=== PATIENT | male | born 1960 | race Caucasian/White ===

== ENCOUNTER 2019-07-09 10:38 | Inpatient (IN) | payer SELFPAY ==
[2019-07-09] VITALS (9 sets, daily range): BP systolic 123–146; BP diastolic 73–88; PULSE 82–90; TEMP 97–98.8
[~2019-07-09] VITALS: Ht 185.4 cm; Wt 128.0 kg
[~2019-07-09 10:38] MED LIST: ANTIBIOTIC
[2019-07-09 12:05] LABS: HEMATOCRIT 43.2 % (42.0-52.0); HEMOGLOBIN 14.4 g/dl (13.5-18.0); MEAN CELL VOLUME 86 fl (80.0-100.0); MEAN CORPUSCULAR HEMOGLOBIN 29 pg (27.0-31.0); MEAN CORPUSCULAR HGB CONC 33 g/dl (33.0-37.0); MEAN PLATELET VOLUME 8.9 fl (7.4-10.4); PLATELET COUNT 424 K/mm3 (130-400); RED BLOOD COUNT 5.01 M/mm3 (4.20-5.60); REDCELL DISTRIBUTION WIDTH-CV 13.7 % (11.5-14.5)
[2019-07-09 12:26] LABS: ALBUMIN 3.9 gm/dL (3.5-5.0); CALCIUM 9.2 mg/dL (8.4-10.2); CREATININE, serum 1.13 (0.66-1.25); POTASSIUM 4.7 mmol/L (3.4-5.0); TOTAL PROTEIN 7.8 gm/dL (6.4-8.2)
[2019-07-09 12:38] LABS: BAND 3 % (0-10); EOSINOPHIL 1 % (0-4); LYMPHOCYTE 8 % (20.0-51.0); NEUTROPHILS 82 % (42.0-75.2); PLATELET ESTIMATE INCREASED (NORMAL)
[2019-07-09 14:32] LABS: COLLECTION METHOD CLEAN CATCH
[2019-07-09 14:46] LABS: MUCOUS Present /lpf; PH 6 (5-8); SQUAMOUS EPITHELIAL 0-2 /hpf; URINE APPEARANCE Hazy; URINE BACTERIA Rare /hpf; URINE BILIRUBIN Negative (NEGATIVE); URINE BLOOD Negative (NEGATIVE); URINE COLOR Amber; URINE GLUCOSE Negative (NEGATIVE); URINE KETONE Negative (NEGATIVE); URINE LEUKOCYTE ESTERASE Negative (NEGATIVE); URINE NITRATE Negative (NEGATIVE); URINE PROTEIN(semi-quant) 1+ (NEGATIVE); URINE RBC 0-2 /hpf; URINE UROBILINOGEN >=4.0 mg/dL (NEGATIVE)
[2019-07-09 14:54] LABS: SYNOVIAL FL. MONONUCLEAR 8.1 % (0-75); SYNOVIAL FLUID RBC 17000 /mm3 (0-0); SYNOVIAL FLUID WBC 110720 /mm3 (200-600)
[2019-07-09 15:03] LABS: SYNOVIAL FLUID APPEARANCE CLOUDY; SYNOVIAL FLUID COLOR YELLOW
--- NOTE | 2019-07-09 17:23 | NUR ---
Vancomycin Initial Dosing Pharmacy Note Ordering provider: Don Luong MD Indication/duration: septic knee/cellulitis, 7 days Relevant comorbidities: h/o gout LABS: SCr 1.13, CrCl~89, GFR 66 Recommendation: Will continue Vancomycin 1.5 gm IV q12h. Pharmacy will check a Vancomycin trough on 07/11/19 and continue to closely monitor. Loading dose: 2 grams Maintenance dose: 1.5 grams every 12 hours Trough goal: 15-20 ug/mL
--- NOTE | 2019-07-09 17:30 | NUR ---
Patient down to OR by bed. Alert and oriented x 3. Family at bedside. Patient and family oriented to room. Assessment complete. LLE appears reddend, tender to touch throughout LLE. Pain medication given prior to patient leaving for OR due to pain 8/10 to left knee.
--- NOTE | 2019-07-09 18:16 | NUR ---
Contacted anesthesia, notified of elevated CRP.
--- NOTE | 2019-07-09 21:13 | NUR ---
Pt arrived to unit from PACU. Alert and oriented. Mild HTN, but other VSS. Came up on O2 at 2L. Denies pain at this time. Denies other needs. CAll light within reach, will continue to monitor
--- NOTE | 2019-07-09 23:01 | NUR ---
Patient doing well post I&D. Denies pain or needs at this time. VSS. Call light within reach, will continue to monitor
[2019-07-10] VITALS (7 sets, daily range): BP systolic 126–147; BP diastolic 70–89; PULSE 73–84; TEMP 97–98.3
--- NOTE | 2019-07-10 00:20 | NUR ---
Does not want to wear marco a hose or SCDs, stated they will make him "too hot"
--- NOTE | 2019-07-10 01:20 | NUR ---
Pt titrated off of 02. 95 on room air.
--- NOTE | 2019-07-10 06:30 | NUR ---
Reported on to Vicky OCHOA
[2019-07-10 07:26] LABS: CALCIUM 8.5 mg/dL (8.4-10.2); CREATININE, serum 0.93 (0.66-1.25); POTASSIUM 4.8 mmol/L (3.4-5.0)
[2019-07-10 07:37] LABS: BASO % 0.1 % (0.0-2.0); GRAN # 11.4 (1.4-6.5); GRAN % 85.7 % (42.2-75.2); HEMATOCRIT 38.6 % (42.0-52.0); HEMOGLOBIN 12.5 g/dl (13.5-18.0); LYMPH # 0.8 (1.2-3.4); LYMPH % 5.9 % (20.0-51.0); MEAN CELL VOLUME 87 fl (80.0-100.0); MEAN CORPUSCULAR HEMOGLOBIN 28 pg (27.0-31.0); MEAN CORPUSCULAR HGB CONC 32 g/dl (33.0-37.0); MONO % 7.4 % (1.7-9.3); PLATELET COUNT 428 K/mm3 (130-400); RED BLOOD COUNT 4.42 M/mm3 (4.20-5.60); REDCELL DISTRIBUTION WIDTH-CV 13.5 % (11.5-14.5)
[2019-07-10 07:41] LABS: C-REACTIVE PROTEIN 21.2 mg/dL (0.0-0.9)
[2019-07-10 08:01] LABS: ERYTHROCYTE SEDIMENTATION RATE 80 mm/hr (0-30)
--- NOTE | 2019-07-10 10:30 | NUR ---
Patient resting in bed, just got done working with therapy. He tolerated well, but did increase pain after, denies needing pain medication. tele dc. Lle dressing cdi. hemovac to compression. Kris to Rle. Scds ble.
--- NOTE | 2019-07-10 10:45 | NUR ---
Initial visit; Patient thanked Hemotherapist for looking in on him, visiting and offering spiritual care.
--- NOTE | 2019-07-10 11:16 | NUR ---
Optical Systems Engineer met with patient to discuss discharge planning. Patient lives in [place] with his Huy (ph#[phone]). Patient had been seeing Dr. Alex Reed in [place] for primary care but wants to switch providers. Patient reports he used to see Dr. Jose Blunt in [place] and would like to switch back to him. Patient obtains medications from [facility] on [address] [facility] in [place]. 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 Kush, Financial Counselor to consult. Patient interested in setting up Advance Directives. DOMENIC assisted patient in completing DPOA-HC form and provided witness signature along with NATI Stevens. DOMENIC provided original and copies to patient and placed additional copy in chart. Patient plans to return home upon discharge.
--- NOTE | 2019-07-10 11:22 | NUR ---
LLE edema, tender to touch. Pain at a 2, dull and achy posterior of L knee. Increased since this morning due to ambulation. Hemovac insertered posterior of L knee with serosangineous drainage. Cryocuff to L knee. SCDs to BLE. Kirs hose to RLE. Telemetry discontinued at 1000.
--- NOTE | 2019-07-10 17:28 | NUR ---
Patient resting in bed. Pain increased this afternoon. One tab norco per request. Cyrocuff on. Ready for dinner.
--- NOTE | 2019-07-10 19:25 | NUR ---
Report to night nurse
[2019-07-11 04:00] VITALS: BP 132/75; PULSE 74; TEMP 98.3
[2019-07-11 07:50] VITALS: BP 132/80; PULSE 77; TEMP 98.8
--- NOTE | 2019-07-11 08:00 | NUR ---
UPON ENTRY TO THE ROOM THIS MORNING THE PATIENT IS RESTING IN BED WITH HIS LEFT LEG ELEVATED ON TWO PILLOWS. PATIENT IS A&OX4. VSS. BOWEL SOUNDS ACTIVE ALL FOUR QUADRANTS. PATIENT TOLERATING DIET WITHOUT ANY COMPLAINTS OF N/V. LEFT KNEE DRESSED WITH A GAUZE AND NANCI WRAP DRESSING AND IS CD&I. NON-PITTING EDEMA TO LLE. ARI HOSE TO RLE. SCD'S TO BLE. CRYOCUFF IN PLACE TO LEFT KNEE. POSITIVE PEDAL PULSES EQUAL BILATERALLY. CAP REFILL <3 SECONDS. CMS INTACT. RIGHT AC TO INT. PATIENT RATING HIS PAIN A 2/10 ON A 0-10 SCALE AT REST. PATIENT STATES THAT THE PAIN IN HIS LEFT KNEE IS THROBBING IN NATURE AND DENIES THE NEED FOR PAIN MEDICATION AT THIS TIME. CALL LIGHT WITHIN REACH. PATIENT DENIES ANY NEEDS AT THIS TIME.
[2019-07-11 08:29] LABS: HEMOGLOBIN 12.4 g/dl (13.5-18.0); MEAN CELL VOLUME 87 fl (80.0-100.0); MEAN CORPUSCULAR HEMOGLOBIN 28 pg (27.0-31.0); MEAN CORPUSCULAR HGB CONC 33 g/dl (33.0-37.0); MEAN PLATELET VOLUME 8.7 fl (7.4-10.4); PLATELET COUNT 371 K/mm3 (130-400); RED BLOOD COUNT 4.36 M/mm3 (4.20-5.60); REDCELL DISTRIBUTION WIDTH-CV 13.6 % (11.5-14.5)
[2019-07-11 08:40] LABS: CALCIUM 8.6 mg/dL (8.4-10.2); CREATININE, serum 0.96 (0.66-1.25); POTASSIUM 4.5 mmol/L (3.4-5.0)
--- NOTE | 2019-07-11 10:41 | NUR ---
Loan Coordinator attended rounds with the team and will continue to follow.
--- NOTE | 2019-07-11 10:50 | NUR ---
PATIENT CALLED OUT REQUESTING PAIN MEDICATION. PATIENT RATING HIS LEFT KNEE PAIN AN 8/10 ON A O-10 SCALE AND IS THROBBING, POUNDING IN NATURE. PATIENT GIVEN PRN PO PAIN MEDICATION. CRYOCUFF IN PLACE TO LEFT KNEE. SCD'S TO BLE. CALL LIGHT WITHIN REACH. WILL CONTINUE TO MONITOR.
[2019-07-11 10:59] VITALS: BP 144/77; PULSE 79; TEMP 98.6
[2019-07-11 11:13] LABS: BAND 3 % (0-10); LYMPHOCYTE 15 % (20.0-51.0); NEUTROPHILS 71 % (42.0-75.2); PLATELET ESTIMATE NORMAL (NORMAL)
[2019-07-11 16:51] VITALS: BP 128/82; PULSE 94; TEMP 98.8
--- NOTE | 2019-07-11 19:06 | NUR ---
BEDSIDE SHIFT REPORT GIVEN TO DON KIM.
--- NOTE | 2019-07-11 19:53 | NUR ---
Vancomycin Follow-up Pharmacy Note Current regimen: 1.5 g IV q12h Vancomycin trough: 8.21 Adjustments: Increase dosage to 1.5 g IV q8h, with trough on 07/13 @ 0730
[2019-07-11 20:00] VITALS: BP 138/77; PULSE 82; TEMP 98.6
--- NOTE | 2019-07-11 21:26 | NUR ---
PATIENT IN BED. REPORTS PAIN TO LEFT KNEE 2/10. MEDICATED WITH NORCO AT THIS TIME. HAS BULKY DRSG ON KNEE, WITH CRYOCUFF ON. SL TO LEFT AC WITHOUT REDNESS OR SWELLING. TAKES HS MEDS AT THIS TIME.
[2019-07-12] VITALS (8 sets, daily range): BP systolic 126–158; BP diastolic 65–81; PULSE 58–92; TEMP 98–98.7
--- NOTE | 2019-07-12 | NUR ---
PATIENT REQUESTING SANDWICH, REPORTS DINNER WAS UNAPPETIZING. PROVIDED SNACK.
--- NOTE | 2019-07-12 06:00 | NUR ---
Medicated with [place] 2 tabs at this time for pain 4/10 to left knee.
[2019-07-12 07:17] LABS: HEMATOCRIT 38.7 % (42.0-52.0); HEMOGLOBIN 12.8 g/dl (13.5-18.0); MEAN CELL VOLUME 87 fl (80.0-100.0); MEAN CORPUSCULAR HEMOGLOBIN 29 pg (27.0-31.0); MEAN CORPUSCULAR HGB CONC 33 g/dl (33.0-37.0); MEAN PLATELET VOLUME 8.9 fl (7.4-10.4); PLATELET COUNT 406 K/mm3 (130-400); RED BLOOD COUNT 4.45 M/mm3 (4.20-5.60); REDCELL DISTRIBUTION WIDTH-CV 13.6 % (11.5-14.5)
[2019-07-12 07:24] LABS: CALCIUM 8.6 mg/dL (8.4-10.2); CREATININE, serum 1.03 (0.66-1.25); POTASSIUM 3.9 mmol/L (3.4-5.0)
[2019-07-12 07:40] LABS: C-REACTIVE PROTEIN 13.1 mg/dL (0.0-0.9)
[2019-07-12 07:46] LABS: BAND 4 % (0-10); LYMPHOCYTE 25 % (20.0-51.0); NEUTROPHILS 56 % (42.0-75.2); PLATELET ESTIMATE INCREASED (NORMAL)
[2019-07-12 07:56] LABS: ERYTHROCYTE SEDIMENTATION RATE 87 mm/hr (0-30)
--- NOTE | 2019-07-12 08:00 | NUR ---
SEE MORNING SHIFT ASSESSMENT.
--- NOTE | 2019-07-12 12:41 | NUR ---
DR. RAO CALLED AND MESSAGE LEFT FOR ID CONSULT.
--- NOTE | 2019-07-12 13:05 | NUR ---
PATIENTS LEFT LEG DRESSED WITH 4X4 GAUZE, ABD PAD, KERLIX AND NANCI WRAP. PATIENT TOLERATED WELL. PATIENT AND EXPRESSED CONCERNS IN REGARDS TO AFFORDING THE ANTIBIOTICS ONCE THE PATIENT IS DISCHARGED FROM THE HOSPITAL. MEDICAID BUSINESS ANALYST FILI CALLED AND NOTIFIED TO COME AND SPEAK WITH THE PATIENT. PATIENT DENIES PAIN AT THIS TIME. CALL LIGHT WITHIN REACH. NO OTHER NEEDS AT THIS TIME.
--- NOTE | 2019-07-12 16:17 | NUR ---
Vendor Management Associate spoke with SALBADOR Lovett who advised patient will require outpatient IV antibiotics. SW met with patient and patient's , Huy who report their preference would be to receive the IV antibiotics at home as their daughter in law, Ashley is an RN. SW explained to patient that with his lack of insurance coverage, the needed drugs would be very expensive. SW reviewed the option of patient receiving IV antibiotics at the outpatient [facility] as he has already filled out a financial assistance application. Patient will consider this option. DOMENIC will continue to follow and wait for recommendations from Infectious Disease Dr to determine what antibiotic will be administered and how often.
--- NOTE | 2019-07-12 19:34 | NUR ---
Lying in bed moaning in pain. Explains that the pain pulses, rates pain at about a 1/10 at this time. Requests pain medication. Adminsitered as prescribed. Dressing to left knee with judy wrap CDI. Patient took a shower this evening and the dressing to PICC line in right upper arm is wet. Will perform sterile dressing change at this time. Patient denies further needs.
--- NOTE | 2019-07-12 20:00 | NUR ---
REPORT GIVEN TO DON FARRELL.
--- NOTE | 2019-07-12 22:00 | NUR ---
Patient requests pain medication for shooting sharp pain in left leg. Administered pain medication as prescribed. Patient denies any further needs at this time.
[2019-07-13 03:08] VITALS: BP 137/80; PULSE 90; TEMP 98.6
--- NOTE | 2019-07-13 03:12 | NUR ---
Complains of pain 6/10 in left knee, describes as shooting pains. Administered prescribed medication. Assisted repositioning patient in bed. Patient denies further needs at this time.
--- NOTE | 2019-07-13 04:41 | NUR ---
Lying in bed on left side with eyes closed. Respirations even and unlabored. No signs or symptoms of discomfort noted at this time.
[2019-07-13 06:23] LABS: MEAN CELL VOLUME 87 fl (80.0-100.0); MEAN CORPUSCULAR HEMOGLOBIN 29 pg (27.0-31.0); MEAN CORPUSCULAR HGB CONC 33 g/dl (33.0-37.0); PLATELET COUNT 351 K/mm3 (130-400); RED BLOOD COUNT 4.21 M/mm3 (4.20-5.60); REDCELL DISTRIBUTION WIDTH-CV 13.3 % (11.5-14.5)
[2019-07-13 06:33] LABS: HEMATOCRIT 36.4 % (42.0-52.0)
[2019-07-13 06:39] LABS: CALCIUM 8.6 mg/dL (8.4-10.2); CREATININE, serum 0.92 (0.66-1.25); POTASSIUM 4.5 mmol/L (3.4-5.0)
[2019-07-13 08:06] VITALS: BP 147/89; PULSE 89; TEMP 98.5
[2019-07-13 09:44] LABS: BAND 5 % (0-10); LYMPHOCYTE 7 % (20.0-51.0); NEUTROPHILS 74 % (42.0-75.2); PLATELET ESTIMATE NORMAL (NORMAL)
--- NOTE | 2019-07-13 10:23 | NUR ---
Vancomycin Follow-up Pharmacy Note Current regimen: Vancomcyin 1.5 gm IV q8h Vancomycin trough: 14.43 Adjustments: Will increase Vancomcyin to 1.75 gm IV q8h as trough slightly subtherapeutic for goal ~15-20. Pharmacy will continue to monitor and check a Vancomycin trough on 07/15/19.
[2019-07-13 11:23] VITALS: BP 142/71; PULSE 84; TEMP 98
[2019-07-13 14:40] LABS: MEAN CELL VOLUME 85 fl (80.0-100.0); MEAN CORPUSCULAR HEMOGLOBIN 28 pg (27.0-31.0); MEAN CORPUSCULAR HGB CONC 33 g/dl (33.0-37.0); MEAN PLATELET VOLUME 8.7 fl (7.4-10.4); PLATELET COUNT 377 K/mm3 (130-400); RED BLOOD COUNT 4.27 M/mm3 (4.20-5.60); REDCELL DISTRIBUTION WIDTH-CV 13.2 % (11.5-14.5)
[2019-07-13 15:07] LABS: HEMATOCRIT 36.3 % (42.0-52.0)
[2019-07-13 15:43] VITALS: BP 145/75; PULSE 90; TEMP 98.9
[2019-07-13 15:59] LABS: BAND 2 % (0-10); EOSINOPHIL 1 % (0-4); LYMPHOCYTE 12 % (20.0-51.0); MICROCYTOSIS 1+; NEUTROPHILS 77 % (42.0-75.2)
[2019-07-13 16:02] LABS: PLATELET ESTIMATE NORMAL (NORMAL)
--- NOTE | 2019-07-13 17:30 | NUR ---
Patient has been doing well today. He is having some increased pain after his shower this afternoon. He has had ultram and norco and stated it is helping. Denies nausea. His was here this afternoon. Patient will be here again tonight. Might get discharged tomorrow if WBC is better. Vanc is infusing at this time. Patient stated he is not hungry but is thirsty. Ordered him some gatorade from the kitchen. His ice has been replaced in his cyro-cuff this afternoon. No other changes at this time. Call light within reach.
[2019-07-13 19:30] VITALS: BP 133/70; PULSE 85; TEMP 98.6
--- NOTE | 2019-07-13 20:06 | NUR ---
Lying in bed in supine position. Patient says that today he was walking in halls and that took a lot out of him. Denies any pain at this time. Dressing to left knee CDI. Patient denies further needs at this time.
[2019-07-13 23:45] VITALS: BP 132/79; PULSE 93; TEMP 98.6
--- NOTE | 2019-07-13 23:58 | NUR ---
Rating pain in left knee 8/10, describes as sharp. Administered pain medication as prescribed at this time. Patient denies further needs currently.
[2019-07-14] VITALS (12 sets, daily range): BP systolic 126–147; BP diastolic 71–93; PULSE 78–102; TEMP 98.6–99.2
--- NOTE | 2019-07-14 01:28 | NUR ---
Continues to rate pain 8/10 in left knee. Pain medication administered as prescribed. Cryocuff applied. Patient denies further needs at this time.
[2019-07-14 06:51] LABS: HEMOGLOBIN 10.9 g/dl (13.5-18.0); MEAN CELL VOLUME 86 fl (80.0-100.0); MEAN CORPUSCULAR HEMOGLOBIN 28 pg (27.0-31.0); MEAN CORPUSCULAR HGB CONC 33 g/dl (33.0-37.0); MEAN PLATELET VOLUME 8.8 fl (7.4-10.4); PLATELET COUNT 380 K/mm3 (130-400); RED BLOOD COUNT 3.85 M/mm3 (4.20-5.60); REDCELL DISTRIBUTION WIDTH-CV 13.2 % (11.5-14.5)
[2019-07-14 07:04] LABS: CALCIUM 8.8 mg/dL (8.4-10.2); CREATININE, serum 0.88 (0.66-1.25); POTASSIUM 4.5 mmol/L (3.4-5.0)
[2019-07-14 07:07] LABS: HEMATOCRIT 33.2 % (42.0-52.0)
[2019-07-14 07:28] LABS: C-REACTIVE PROTEIN 24.5 mg/dL (0.0-0.9)
[2019-07-14 07:37] LABS: BAND 3 % (0-10); EOSINOPHIL 1 % (0-4); LYMPHOCYTE 13 % (20.0-51.0); METAMYELOCYTE 1 % (0-0); NEUTROPHILS 73 % (42.0-75.2)
[2019-07-14 07:38] LABS: ERYTHROCYTE SEDIMENTATION RATE > 140 mm/hr (0-30); PLATELET ESTIMATE NORMAL (NORMAL)
--- NOTE | 2019-07-14 12:30 | NUR ---
Patient has been having a hard time getting comfortable this morning. His pain is not being contorlled well. He did not want an order for additional pain medications. He is having another surgery today to the same area. Patient and family aware. No other changes at this time. Call light within reach.
--- NOTE | 2019-07-14 17:30 | NUR ---
Patient going down for surgery. Vanc is going with patient. Consent signed and on the chart. No other changes a this time. Family at bedside. Patient showered today with the surgical scrub. No other changes at this time. Call light within reach.
--- NOTE | 2019-07-14 21:09 | NUR ---
Patient brought to floor by PACU staff via bed. Patient moaning in pain. Having pain in buttocks at this time. Dressing to left knee with NANCI bandage CDI. Swelling of knee noted. Hemovac drain compressed with small amount of bloody drainage in tubing. Patient denies needs at this time.
--- NOTE | 2019-07-14 21:32 | NUR ---
Patient moaning from pain in buttocks. Administered Morphine as prescribed at this time.
[2019-07-15] VITALS (8 sets, daily range): BP systolic 118–146; BP diastolic 63–82; PULSE 78–96; TEMP 98.4–99.9
--- NOTE | 2019-07-15 00:35 | NUR ---
Lying in bed. Rates pain 3-4/10 in left knee. Administered pain medication at this time as prescribed. Patient denies further needs.
--- NOTE | 2019-07-15 02:39 | NUR ---
Rating pain in buttocks and knee /10. Administered Morphine as prescribed. Patient denies further needs at this time.
--- NOTE | 2019-07-15 06:18 | NUR ---
Lying in bed with eyes closed. Eyes open when enter room. Patient says that he has pain but tolerable at this time. Denies any further needs at this time.
[2019-07-15 08:48] LABS: MEAN CELL VOLUME 88 fl (80.0-100.0); MEAN CORPUSCULAR HGB CONC 33 g/dl (33.0-37.0); MEAN PLATELET VOLUME 8.8 fl (7.4-10.4); RED BLOOD COUNT 3.35 M/mm3 (4.20-5.60); REDCELL DISTRIBUTION WIDTH-CV 13.5 % (11.5-14.5)
[2019-07-15 08:49] LABS: HEMATOCRIT 29.4 % (42.0-52.0); HEMOGLOBIN 9.6 g/dl (13.5-18.0); MEAN CORPUSCULAR HEMOGLOBIN 29 pg (27.0-31.0); PLATELET COUNT 492 K/mm3 (130-400)
[2019-07-15 09:14] LABS: CALCIUM 8.2 mg/dL (8.4-10.2); CREATININE, serum 0.93 (0.66-1.25); POTASSIUM 4.3 mmol/L (3.4-5.0)
[2019-07-15 09:32] LABS: C-REACTIVE PROTEIN 24.6 mg/dL (0.0-0.9)
[2019-07-15 09:35] LABS: BAND 1 % (0-10); BASOPHIL 1 % (0-2); METAMYELOCYTE 1 % (0-0); NEUTROPHILS 85 % (42.0-75.2)
[2019-07-15 09:36] LABS: HYPOCHROMIA 1+; LYMPHOCYTE 7 % (20.0-51.0); PLATELET ESTIMATE INCREASED (NORMAL)
[2019-07-15 09:37] LABS: ERYTHROCYTE SEDIMENTATION RATE > 140 mm/hr (0-30)
--- NOTE | 2019-07-15 16:31 | NUR ---
DOMENIC met with the patient to introduce oneself and to follow up. The patient reports that he is doing okay. Was able to get up twice with therapy today. He states that his biggest concern is being able to afford and get the IV antibiotics that may be recommended. DOMENIC discussed kt through the Express [facility]. He states that he would be agreeable to coming here, if needed and if [facility] is unable to do so. SW to continue to follow for IV antibiotic needs.
--- NOTE | 2019-07-15 18:03 | NUR ---
Patient resting in bed. His pain was more elevated this morning, but better manged this evening with PO [place] & motrin. Cyrocuff also keeps pain panchito. LLE dressing intact, Hemovac with minimal output. Picc to Rue antibioitcs per orders. He worked with therapy today. His assisted with shower this afternoon. Voiding adequately using urinal. Kris to RLE& Scds Ble. Vss on room air. Report will be gien to night nurse
--- NOTE | 2019-07-15 20:25 | NUR ---
Patient in bed, reports pain 5/10 to left leg/knee. Left leg/foot swollen, has elevated on pillow. Has drsg to left knee with hemovac to compression with minimal serosanguinous output. Drsg D/I. Cryocuff filled at this time. [place] 7.5mg 2 tabs given at this time. PICC to right upper arm. Voiding per urinal.
--- NOTE | 2019-07-15 23:10 | NUR ---
Reports pain to left knee 11/14, Tramadol 100mg po now.
--- NOTE | 2019-07-16 01:18 | NUR ---
Patient reports pain 4/10 to left knee. [place] 2 tabs given at this time. IV Vanco infusing to PICC without redness or swelling.
[2019-07-16 03:38] VITALS: BP 124/79; PULSE 76; TEMP 98.5
--- NOTE | 2019-07-16 04:00 | NUR ---
Labs obtained from PICC. No request for pain meds at this time.
[2019-07-16 04:17] LABS: BASO % 0.4 % (0.0-2.0); EOS # 0.2 (0.0-0.7); EOS % 1.9 % (0-4.0); GRAN # 7.9 (1.4-6.5); GRAN % 73.5 % (42.2-75.2); HEMOGLOBIN 10.1 g/dl (13.5-18.0); LYMPH # 1.2 (1.2-3.4); LYMPH % 11.4 % (20.0-51.0); MEAN CELL VOLUME 88 fl (80.0-100.0); MEAN CORPUSCULAR HEMOGLOBIN 28 pg (27.0-31.0); MEAN CORPUSCULAR HGB CONC 32 g/dl (33.0-37.0); MEAN PLATELET VOLUME 8.7 fl (7.4-10.4); MONO # 1.3 (0.1-0.6); MONO % 11.8 % (1.7-9.3); RED BLOOD COUNT 3.59 M/mm3 (4.20-5.60); REDCELL DISTRIBUTION WIDTH-CV 13.4 % (11.5-14.5)
[2019-07-16 04:21] LABS: HEMATOCRIT 31.4 % (42.0-52.0); PLATELET COUNT 365 K/mm3 (130-400)
[2019-07-16 04:40] LABS: ERYTHROCYTE SEDIMENTATION RATE > 140 mm/hr (0-30)
[2019-07-16 08:00] VITALS: BP 135/75; PULSE 81; TEMP 99
[2019-07-16 08:03] LABS: PATHOLOGY DIFF REVIEW OK
--- NOTE | 2019-07-16 10:00 | NUR ---
PATIENT ARRIVED BACK TO ROOM 349 FROM MRI VIA WHEELCHAIR. PATIENT RATING HIS PAIN A 10/10 ON A 0-10 SCALE. SEE MORNING SHIFT ASSESSMENT. CALL LIGHT WITHIN REACH. NO OTHER NEEDS AT THIS TIME.
--- NOTE | 2019-07-16 10:30 | NUR ---
PATIENTS LEFT KNEE DRESSING REMOVED. 4X4 GAUZE, ABD PAD, KERLIX AND NANCI WRAP APPLIED TO LEFT KNEE. PATIENT TOLERATED WELL. PATIENT GIVEN PRN IV MORPHINE PRIOR TO DRESSING CHANGE FOR PAIN RATED A 10/10 ON A 0-10 SCALE. CALL LIGHT WITHIN REACH. LLE ELEVATED ON PILLOWS. PATIENT DENIES ANY OTHER NEEDS AT THIS TIME.
--- NOTE | 2019-07-16 11:10 | NUR ---
PICC intact right upper arm. With sterile technique right upper arm PICC dressing change done with insertion site cleansed with ChloraPrep 1, chlorhexidine impregnated disc applied, skin prep, StatLock, and Tegaderm applied. No signs or symptoms of IV complications noted. No concerns voiced.
[2019-07-16 12:00] VITALS: BP 131/78; PULSE 85; TEMP 98.6
[2019-07-16 16:00] VITALS: BP 143/78; PULSE 88; TEMP 98.3
--- NOTE | 2019-07-16 19:30 | NUR ---
BEDSIDE SHIFT REPORT GIVEN TO DON KIM.
[2019-07-16 19:31] VITALS: BP 146/81; PULSE 83; TEMP 98.3
--- NOTE | 2019-07-16 20:28 | NUR ---
PATIENT REQUESTING PAIN MEDS. MEDICATED WITH NORCO 7.5MG 2 TABS AT THIS TIME. CRYOCUFF WORKING INTERMITTENTLY. DRSG TO LEFT KNEE D/I, MILD SWELLING TO LOWER LEG NOTED. RIGHT PICC INTACT AND FLUSHES WELL. PT HOPING FOR SLEEP.
[2019-07-16 23:53] VITALS: BP 151/77; PULSE 85; TEMP 97.9
--- NOTE | 2019-07-17 00:05 | NUR ---
PT ASKING FOR PAIN MEDS FOR 6/10 PAIN TO LEFT KNEE. TRAMADOL 100MG PO AT THIS TIME GIVEN.
--- NOTE | 2019-07-17 02:22 | NUR ---
PATIENT CALLS FOR NURSE, HAD WHAT HE CALLED A MUSCLE SPASM IN LEFT LEG. MEDICATED WITH NORCO 2 TABS AT THIS TIME.
[2019-07-17 04:00] VITALS: BP 135/70; PULSE 78; TEMP 98
--- NOTE | 2019-07-17 05:00 | NUR ---
Labs drawn from right PICC. Denies needs at this time.
[2019-07-17 06:07] LABS: HEMOGLOBIN 10.3 g/dl (13.5-18.0); MEAN CELL VOLUME 87 fl (80.0-100.0); MEAN CORPUSCULAR HEMOGLOBIN 28 pg (27.0-31.0); MEAN CORPUSCULAR HGB CONC 33 g/dl (33.0-37.0); PLATELET COUNT 398 K/mm3 (130-400); RED BLOOD COUNT 3.65 M/mm3 (4.20-5.60); REDCELL DISTRIBUTION WIDTH-CV 13.2 % (11.5-14.5)
[2019-07-17 06:09] LABS: HEMATOCRIT 31.6 % (42.0-52.0)
[2019-07-17 06:13] LABS: CALCIUM 8.8 mg/dL (8.4-10.2); CREATININE, serum 0.99 (0.66-1.25); POTASSIUM 4.3 mmol/L (3.4-5.0)
[2019-07-17 06:47] LABS: BAND 10 % (0-10); LYMPHOCYTE 17 % (20.0-51.0); METAMYELOCYTE 1 % (0-0); NEUTROPHILS 65 % (42.0-75.2); PLATELET ESTIMATE NORMAL (NORMAL)
[2019-07-17 08:33] VITALS: BP 138/68; PULSE 85; TEMP 98.4
[2019-07-17 13:38] VITALS: BP 130/62; PULSE 81; TEMP 98.8
--- NOTE | 2019-07-17 14:54 | NUR ---
ID is recommending the IV antibiotic Daptomycin for four weeks. DOMENIC met with the patient, patient's step-son, and [id number] (Araceli) to discuss the options with being self pay. The patient and his family were interested in finding out how much it would cost to do home infusions and at [facility]. DOMENIC contacted [facility] and [facility]. Joshua, at [facility], reports that they would not be able to do it. Lilliam, at [facility], reports that it would be around $900 a dose and recommend doing it at an infusion center or express unit. Padilla, at [facility], reports that it would cost around $2,200 a dose. DOMENIC updated the patient and the patient's [id number], Araceli. The patient reports that he cannot afford those options. The patient and his family would like to pursue with getting the IV antibiotics in [facility]. DOMENIC contacted Ros in the Express Unit and set up the IV antibiotics. Ros reports that his appointment time will be 0800. DOMENIC informed the patient of this and he is agreeable to this time. SW to continue to follow.
[2019-07-17] MEDS ORDERED: CUBICIN 500MG500 MG IV (15:22)
[2019-07-17] MEDS ORDERED: NORCO 325 MG-7.1 TAB PO (15:23)
[2019-07-17 16:11] VITALS: BP 139/71; PULSE 86; TEMP 99.3
--- NOTE | 2019-07-17 17:06 | NUR ---
The patient is to discharge back home with his today, 07/17, with outpatient IV antibiotics in [facility] Express [facility]. DOMENIC contacted and faxed the patient's discharge orders, script, and his Financial Assistance Application to Ros in the Express Unit. DOMENIC also followed up with the patient about the team's recommendation of outpatient PT. The patient was in agreeance to this and preferred to receive outpatient PT at the [facility] on [address]. DOMENIC contacted and secured the patient and appointment at the [facility] on [address] on , 08/01, at 0915. DOMENIC informed the president of the [place] of the appointment and the patient. DOMENIC faxed the patient's orders and Financial Assistance Application to Jeff at the [facility] on [address]. No additional needs at this time.
== END 2019-07-17 17:30 | disposition home or self-care (01) | DRG 549 ==
LOC: COL.ER 10:38 → SURG 15:55
PROVIDERS: Family Medicine; Nurse Practitioner Family; Orthopaedic Surgery; Physician Assistant; ADMIT Internal Medicine
PROC: 3E1U48Z Irrigation of Joints using Irrigating Substance, Percutaneous Endoscopic Approach (ICD-10-PCS; 2019-07-09)
PROC: 0S9D40Z Drainage of Left Knee Joint with Drainage Device, Percutaneous Endoscopic Approach (ICD-10-PCS; principal; 2019-07-09 17:00)
PROC: 02HV33Z Insertion of Infusion Device into Superior Vena Cava, Percutaneous Approach (ICD-10-PCS; 2019-07-12)
DX: M00.9 Pyogenic arthritis, unspecified (principal); L03.116 Cellulitis of left lower limb; M10.9 Gout, unspecified; L40.9 Psoriasis, unspecified; D47.3 Essential (hemorrhagic) thrombocythemia; M13.862 Other specified arthritis, left knee; B95.62 Methicillin resistant Staphylococcus aureus infection as the cause of diseases classified elsewhere; Z90.49 Acquired absence of other specified parts of digestive tract; Z90.89 Acquired absence of other organs
CPT/HCPCS: 99231-AI; 99232-AI; 99239; A9284; C1751; C1892; J0171; J0690; J0878; J1100; J1170; J1650; J2270; J2405; J2704; J3010; J3370; J7030; J7040; J7042; J7050; J7120

== ENCOUNTER 2019-08-07 08:57 | Outpatient (RCR) | payer SELFPAY ==
--- NOTE | 2019-07-18 08:20 | NUR ---
PICC intact right upper arm with sterile dressing change done with insertion site cleansed with chloraprep x 1, chlorhexidine impregnated disk applied, skin prep, stat lock, and tegaderm applied. red port flushed with 10ml normal saline with good blood return noted. unable to flush purple port. no other concerns voiced. chext x ray done to confirm tip location. reviewed. RN will obtain an order for cath cathi. to instill in am. patient advised of plan. wrapped with judy to protect catheter.
[2019-07-18 08:21] VITALS: BP 136/80; PULSE 83; TEMP 97.9
[2019-07-19 09:19] VITALS: BP 146/75; PULSE 73; TEMP 98
[2019-07-20 07:59] VITALS: BP 134/83; PULSE 74; TEMP 97.7
[2019-07-21 08:00] VITALS: BP 154/106; PULSE 78; TEMP 98
--- NOTE | 2019-07-21 08:44 | NUR ---
Per pt report his red port was not flushing yesterday.This nurse was able to flush but no blood return obtained.Chest xray obtained previously reported propper placement.Encouraged pt to use Cathflow on PICC when scheduled Monday.Due to weather conditions no Cathflo done today.
[2019-07-22 09:34] VITALS: BP 138/83; PULSE 79; TEMP 97.8
[2019-07-22 09:45] LABS: HEMOGLOBIN 10.9 g/dl (13.5-18.0); MEAN CELL VOLUME 86 fl (80.0-100.0); MEAN CORPUSCULAR HEMOGLOBIN 29 pg (27.0-31.0); MEAN CORPUSCULAR HGB CONC 33 g/dl (33.0-37.0); MEAN PLATELET VOLUME 8.6 fl (7.4-10.4); PLATELET COUNT 577 K/mm3 (130-400); RED BLOOD COUNT 3.83 M/mm3 (4.20-5.60); REDCELL DISTRIBUTION WIDTH-CV 13.3 % (11.5-14.5)
[2019-07-22 09:46] LABS: HEMATOCRIT 32.9 % (42.0-52.0)
--- NOTE | 2019-07-22 09:50 | NUR ---
PICC intact right upper arm. red port hard to flush with no blood return noted. purple port flushed without difficulty with good blood return noted. patient unable to stay today for cath-cathi. The plan is to instill cath-cathi in am.
--- NOTE | 2019-07-22 10:00 | NUR ---
able to flush purple lumen and get good blood return from purple lumen, but had a difficult time even flushing red port today, was able to flush with pt turning head to left and coughing, but unable to get any blood return from red port today. considered cath cathi after eval by Sandy, but pt had an appt at 1100 and we decided to try cath cathi tomorrow due to time limitation today.
[2019-07-22 10:05] LABS: ALBUMIN 3.5 gm/dL (3.5-5.0); BILIRUBIN,TOTAL 0.4 mg/dL (0.0-1.0); C-REACTIVE PROTEIN 7.3 mg/dL (0.0-0.9); CALCIUM 8.8 mg/dL (8.4-10.2); CREATININE, serum 0.95 (0.66-1.25); POTASSIUM 4.3 mmol/L (3.4-5.0); TOTAL PROTEIN 7.8 gm/dL (6.4-8.2)
[2019-07-22 10:07] LABS: ERYTHROCYTE SEDIMENTATION RATE 120 mm/hr (0-30)
[2019-07-23 08:58] VITALS: BP 144/81; PULSE 78; TEMP 97.6
--- NOTE | 2019-07-23 08:59 | NUR ---
Able to flush purple port and get good blood return from purple port, however still unable to flush red port today. order for cath cathi scanned to pharmacy.
--- NOTE | 2019-07-23 09:55 | NUR ---
ABLE TO DRAW BLOOD FROM RED PORT OF PICC LINE AFTER CATHFLO DWELL TIME OF 30 MINUTES. WITHDREW 8 CC BLOOD, THEN FLUSHED VIGOROUSLY WITH 2 NS FLUSHES, FLUSHES MUCH EASIER AFTER CATH FREDDIE.
[2019-07-24 09:21] VITALS: BP 153/83; PULSE 68; TEMP 97.6
[2019-07-25 09:01] VITALS: BP 139/79; PULSE 87; TEMP 97.6
--- NOTE | 2019-07-25 09:10 | NUR ---
PICC intact right upper arm with sterile dressing change done with insertion site cleansed with chloraprep x 1, chlorhexidine impregnated disk applied, skin prep, stat lock, and tegaderm applied. no signs or symptoms of IV complications noted. no concerns voiced. extra tegaderm applied on top of dressing. arm wrapped with judy to protect catether. to continue with cares in EU. voiced understanding of instructions.
[2019-07-26 09:05] VITALS: BP 129/86; PULSE 72; TEMP 97.7
[2019-07-27 08:10] VITALS: BP 131/73; PULSE 75; TEMP 98.6
[2019-07-28 08:18] VITALS: BP 131/81; PULSE 83; TEMP 97.8
--- NOTE | 2019-07-29 08:50 | NUR ---
Per patient request. right upper arm PICC dressing change done with insertion site cleansed with chloraprep x 1, chlorhexidine impregnated disk applied. skin prep, stat lock, and tegaderm applied. no signs or symptoms of IV complications noted. no concerns voiced. to continue with cares in EU. voiced understanding of instructions.
[2019-07-29 09:15] LABS: HEMOGLOBIN 11.2 g/dl (13.5-18.0); MEAN CELL VOLUME 86 fl (80.0-100.0); MEAN CORPUSCULAR HEMOGLOBIN 28 pg (27.0-31.0); MEAN CORPUSCULAR HGB CONC 33 g/dl (33.0-37.0); MEAN PLATELET VOLUME 8.6 fl (7.4-10.4); PLATELET COUNT 507 K/mm3 (130-400); RED BLOOD COUNT 4.01 M/mm3 (4.20-5.60); REDCELL DISTRIBUTION WIDTH-CV 13.2 % (11.5-14.5)
[2019-07-29 09:16] LABS: HEMATOCRIT 34.3 % (42.0-52.0)
[2019-07-29 09:22] VITALS: BP 138/82; PULSE 86; TEMP 97.4
[2019-07-29 09:36] LABS: ALBUMIN 3.6 gm/dL (3.5-5.0); BILIRUBIN,TOTAL 0.4 mg/dL (0.0-1.0); C-REACTIVE PROTEIN 5.4 mg/dL (0.0-0.9); CALCIUM 9.2 mg/dL (8.4-10.2); CREATININE, serum 0.96 (0.66-1.25); ERYTHROCYTE SEDIMENTATION RATE 101 mm/hr (0-30); POTASSIUM 4.3 mmol/L (3.4-5.0); TOTAL PROTEIN 8.1 gm/dL (6.4-8.2)
[2019-07-30 08:14] VITALS: BP 132/72; PULSE 80; TEMP 98
[2019-07-31 08:16] VITALS: BP 147/93; PULSE 70; TEMP 98
[2019-08-01 08:44] VITALS: BP 137/96; PULSE 76; TEMP 98
[2019-08-02 08:58] VITALS: BP 155/95; PULSE 72; TEMP 98
[2019-08-03 08:02] VITALS: BP 140/90; PULSE 69; TEMP 97.8
[2019-08-04 08:08] VITALS: BP 135/87; PULSE 78; TEMP 98.1
[2019-08-05 09:15] VITALS: BP 130/85; PULSE 72; TEMP 98.2
--- NOTE | 2019-08-05 09:15 | NUR ---
PICC dressing intact with no chlorhexidine impregnated disc. With sterile technique right upper arm PICC dressing change done with insertion site cleansed with ChloraPrep 1, chlorhexidine impregnated disc applied, skin prep, StatLock, and Tegaderm applied. Patient to continue with cares in the express unit. Patient voiced understanding of instructions.
[2019-08-05 09:19] LABS: HEMOGLOBIN 11.6 g/dl (13.5-18.0); MEAN CELL VOLUME 85 fl (80.0-100.0); MEAN CORPUSCULAR HEMOGLOBIN 27 pg (27.0-31.0); MEAN CORPUSCULAR HGB CONC 32 g/dl (33.0-37.0); MEAN PLATELET VOLUME 8.8 fl (7.4-10.4); PLATELET COUNT 390 K/mm3 (130-400); RED BLOOD COUNT 4.24 M/mm3 (4.20-5.60); REDCELL DISTRIBUTION WIDTH-CV 13.2 % (11.5-14.5)
[2019-08-05 09:30] LABS: ALBUMIN 3.7 gm/dL (3.5-5.0); BILIRUBIN,TOTAL 0.4 mg/dL (0.0-1.0); C-REACTIVE PROTEIN 2.3 mg/dL (0.0-0.9); CALCIUM 8.9 mg/dL (8.4-10.2); CREATININE, serum 1.05 (0.66-1.25); POTASSIUM 4.4 mmol/L (3.4-5.0); TOTAL PROTEIN 7.9 gm/dL (6.4-8.2)
[2019-08-05 09:49] LABS: ERYTHROCYTE SEDIMENTATION RATE 63 mm/hr (0-30)
[2019-08-06 08:59] VITALS: BP 146/87; PULSE 71; TEMP 97.2
[~2019-08-07] VITALS: Ht 185.4 cm; Wt 119.9 kg
[~2019-08-07 08:57] MED LIST changes: +CUBICIN 500MG500 MG IV; +INDOCIN50 MG PO; +NORCO 325 MG-7.1 TAB PO; +ZYLOPRIM 300MG300 MG PO
[2019-08-07 09:02] VITALS: BP 131/77; PULSE 68; TEMP 98.3
== END 2019-08-08 08:27 | disposition home or self-care (01) ==
LOC: EUO 09:00
PROVIDERS: Internal Medicine
DX: Z45.2 Encounter for adjustment and management of vascular access device (principal); Z87.81 Personal history of (healed) traumatic fracture; Z79.899 Other long term (current) drug therapy
CPT/HCPCS: J0878; J2997

== ENCOUNTER 2019-08-22 09:00 | Outpatient (RCR) | payer BC ==
[2019-08-08 09:00] VITALS: BP 164/93; PULSE 69; TEMP 97.7
[2019-08-09 09:12] VITALS: BP 132/92; PULSE 67; TEMP 98.2
[2019-08-10 08:45] VITALS: BP 133/91; PULSE 70; TEMP 98.1
[2019-08-11 08:45] VITALS: BP 139/81; PULSE 68; TEMP 98.2
[2019-08-12 09:50] LABS: BASO # 0.1 (0.0-0.2); EOS # 0.3 (0.0-0.7); EOS % 4.1 % (0-4.0); GRAN # 4.4 (1.4-6.5); GRAN % 65.4 % (42.2-75.2); HEMOGLOBIN 11.9 g/dl (13.5-18.0); LYMPH # 1.3 (1.2-3.4); LYMPH % 19.4 % (20.0-51.0); MEAN CELL VOLUME 85 fl (80.0-100.0); MEAN CORPUSCULAR HEMOGLOBIN 28 pg (27.0-31.0); MEAN CORPUSCULAR HGB CONC 32 g/dl (33.0-37.0); MEAN PLATELET VOLUME 9.1 fl (7.4-10.4); MONO # 0.7 (0.1-0.6); MONO % 9.8 % (1.7-9.3); PLATELET COUNT 307 K/mm3 (130-400); RED BLOOD COUNT 4.33 M/mm3 (4.20-5.60); REDCELL DISTRIBUTION WIDTH-CV 13.6 % (11.5-14.5)
[2019-08-12 10:07] LABS: HEMATOCRIT 36.9 % (42.0-52.0)
[2019-08-12 10:08] LABS: ALBUMIN 3.9 gm/dL (3.5-5.0); BILIRUBIN,TOTAL 0.3 mg/dL (0.0-1.0); C-REACTIVE PROTEIN 2.2 mg/dL (0.0-0.9); CALCIUM 9.1 mg/dL (8.4-10.2); CREATININE, serum 1.06 (0.66-1.25); POTASSIUM 4.3 mmol/L (3.4-5.0); TOTAL PROTEIN 8.2 gm/dL (6.4-8.2)
[2019-08-12 10:13] LABS: ERYTHROCYTE SEDIMENTATION RATE 63 mm/hr (0-30)
[2019-08-12 11:33] VITALS: BP 142/85; PULSE 65; TEMP 98.1
[2019-08-13 09:44] VITALS: BP 151/87; PULSE 73; TEMP 98.3
[2019-08-14 09:11] VITALS: BP 118/72; PULSE 86; TEMP 97.8
[2019-08-15 09:12] VITALS: BP 149/95; PULSE 77; TEMP 97.8
[2019-08-16 09:07] VITALS: BP 136/82; PULSE 70; TEMP 97.6
[2019-08-17 09:00] VITALS: BP 143/84; PULSE 73; TEMP 97.7
[2019-08-18 08:38] VITALS: BP 131/88; PULSE 76; TEMP 97.6
--- NOTE | 2019-08-19 09:00 | NUR ---
PICC intact right upper arm with sterile dressing change done with insertion site cleansed with chloraprep x 1, chlorhexidine impregnated disk applied, skin prep, stat lock, and tegaderm applied. no signs or symptoms of IV complications noted. no concerns voiced. re-wrapped with judy to protect catheter.
[2019-08-19 09:20] VITALS: BP 143/85; PULSE 65; TEMP 97.4
[2019-08-19 09:25] LABS: HEMOGLOBIN 12.8 g/dl (13.5-18.0); MEAN CELL VOLUME 85 fl (80.0-100.0); MEAN CORPUSCULAR HEMOGLOBIN 27 pg (27.0-31.0); MEAN CORPUSCULAR HGB CONC 32 g/dl (33.0-37.0); MEAN PLATELET VOLUME 9.1 fl (7.4-10.4); PLATELET COUNT 286 K/mm3 (130-400); RED BLOOD COUNT 4.69 M/mm3 (4.20-5.60); REDCELL DISTRIBUTION WIDTH-CV 14.3 % (11.5-14.5)
[2019-08-19 09:26] LABS: ALBUMIN 4.1 gm/dL (3.5-5.0); BILIRUBIN,TOTAL 0.5 mg/dL (0.0-1.0); C-REACTIVE PROTEIN 2.1 mg/dL (0.0-0.9); CALCIUM 9.2 mg/dL (8.4-10.2); CREATININE, serum 0.94 (0.66-1.25); POTASSIUM 4.5 mmol/L (3.4-5.0); TOTAL PROTEIN 8.3 gm/dL (6.4-8.2)
[2019-08-19 09:53] LABS: ERYTHROCYTE SEDIMENTATION RATE 46 mm/hr (0-30)
[2019-08-20 09:24] VITALS: BP 136/79; PULSE 69; TEMP 98.1
[2019-08-20 09:55] LABS: BASO # 0.1 (0.0-0.2); BASO % 0.8 % (0.0-2.0); EOS # 0.3 (0.0-0.7); GRAN # 4.3 (1.4-6.5); GRAN % 66.9 % (42.2-75.2); LYMPH # 1.2 (1.2-3.4); MONO # 0.6 (0.1-0.6); MONO % 9.1 % (1.7-9.3)
[2019-08-21 09:10] VITALS: BP 141/87; PULSE 66; TEMP 97.8
[~2019-08-22] VITALS: Ht 185.4 cm; Wt 119.0 kg
[2019-08-22 08:58] VITALS: BP 128/78; PULSE 71; TEMP 98.1
--- NOTE | 2019-08-22 11:11 | NUR ---
Pt discharged at this time.
== END 2019-08-22 11:12 | disposition home or self-care (01) ==
LOC: EUO 09:00
PROVIDERS: Family Medicine; Nurse Practitioner
DX: A41.9 Sepsis, unspecified organism (principal); M00.9 Pyogenic arthritis, unspecified
CPT/HCPCS: J0878

== ENCOUNTER → 2019-09-10 | Outpatient (CLI) | payer BC ==
[2019-09-10 13:01] LABS: BASO # 0.1 (0.0-0.2); BASO % 0.9 % (0.0-2.0); EOS # 0.2 (0.0-0.7); EOS % 3.2 % (0-4.0); GRAN # 4.1 (1.4-6.5); HEMATOCRIT 40.6 % (42.0-52.0); HEMOGLOBIN 13.2 g/dl (13.5-18.0); LYMPH # 1.5 (1.2-3.4); LYMPH % 22.4 % (20.0-51.0); MEAN CELL VOLUME 85 fl (80.0-100.0); MEAN CORPUSCULAR HEMOGLOBIN 28 pg (27.0-31.0); MEAN CORPUSCULAR HGB CONC 33 g/dl (33.0-37.0); MONO # 0.8 (0.1-0.6); MONO % 12.2 % (1.7-9.3); PLATELET COUNT 341 K/mm3 (130-400); RED BLOOD COUNT 4.79 M/mm3 (4.20-5.60); REDCELL DISTRIBUTION WIDTH-CV 14.8 % (11.5-14.5)
[2019-09-10 13:12] LABS: ALBUMIN 4.3 gm/dL (3.5-5.0); BILIRUBIN,TOTAL 0.7 mg/dL (0.0-1.0); C-REACTIVE PROTEIN 1.3 mg/dL (0.0-0.9); CALCIUM 9.1 mg/dL (8.4-10.2); CREATININE, serum 0.99 (0.66-1.25); POTASSIUM 4.2 mmol/L (3.4-5.0); TOTAL PROTEIN 8.4 gm/dL (6.4-8.2)
[2019-09-10 13:44] LABS: ERYTHROCYTE SEDIMENTATION RATE 16 mm/hr (0-30)
== END ==
LOC: COL.LAB 12:34
PROVIDERS: Internal Medicine Infectious Disease
DX: Z22.322 Carrier or suspected carrier of Methicillin resistant Staphylococcus aureus (principal); M00.9 Pyogenic arthritis, unspecified

== ENCOUNTER → 2019-10-10 | Outpatient (CLI) | payer BC ==
[2019-10-10 10:23] LABS: BASO # 0.1 (0.0-0.2); BASO % 1.1 % (0.0-2.0); EOS # 0.2 (0.0-0.7); EOS % 3.4 % (0-4.0); GRAN # 4.1 (1.4-6.5); GRAN % 63.2 % (42.2-75.2); HEMATOCRIT 42.2 % (42.0-52.0); HEMOGLOBIN 13.6 g/dl (13.5-18.0); LYMPH # 1.3 (1.2-3.4); LYMPH % 20.4 % (20.0-51.0); MEAN CELL VOLUME 85 fl (80.0-100.0); MEAN CORPUSCULAR HEMOGLOBIN 27 pg (27.0-31.0); MEAN CORPUSCULAR HGB CONC 32 g/dl (33.0-37.0); MEAN PLATELET VOLUME 9.4 fl (7.4-10.4); MONO # 0.8 (0.1-0.6); MONO % 11.7 % (1.7-9.3); PLATELET COUNT 334 K/mm3 (130-400); RED BLOOD COUNT 4.97 M/mm3 (4.20-5.60); REDCELL DISTRIBUTION WIDTH-CV 15.3 % (11.5-14.5)
[2019-10-10 10:38] LABS: ALBUMIN 4.3 gm/dL (3.5-5.0); BILIRUBIN,TOTAL 0.5 mg/dL (0.0-1.0); CALCIUM 9.1 mg/dL (8.4-10.2); CREATININE, serum 1.02 (0.66-1.25); POTASSIUM 4.3 mmol/L (3.4-5.0)
[2019-10-10 11:01] LABS: ERYTHROCYTE SEDIMENTATION RATE 7 mm/hr (0-30)
== END ==
LOC: COL.LAB 09:47
PROVIDERS: Nurse Practitioner
DX: M00.9 Pyogenic arthritis, unspecified (principal); Z22.322 Carrier or suspected carrier of Methicillin resistant Staphylococcus aureus

== ENCOUNTER 2019-10-23 11:00 | Outpatient (RCR) | payer BC | END 2019-10-30 | disposition home or self-care (01) | LOC: WSPT | DX: M00.862 Arthritis due to other bacteria, left knee (principal) ==

== ENCOUNTER 2019-12-12 10:00 | Outpatient (RCR) | payer BC | END 2020-01-15 09:07 | disposition home or self-care (01) | LOC: WSC 10:00 | DX: M00.9 Pyogenic arthritis, unspecified (principal) ==

== ENCOUNTER → 2020-01-15 | Outpatient (CLI) | payer BC ==
[2020-01-15 14:56] LABS: BASO # 0.1 (0.0-0.2); EOS # 0.5 (0.0-0.7); EOS % 8.3 % (0-4.0); GRAN # 3.7 (1.4-6.5); GRAN % 58.6 % (42.2-75.2); HEMATOCRIT 39.9 % (42.0-52.0); HEMOGLOBIN 13.2 g/dl (13.5-18.0); LYMPH # 1.3 (1.2-3.4); LYMPH % 21.1 % (20.0-51.0); MEAN CELL VOLUME 84 fl (80.0-100.0); MEAN CORPUSCULAR HEMOGLOBIN 28 pg (27.0-31.0); MEAN CORPUSCULAR HGB CONC 33 g/dl (33.0-37.0); MEAN PLATELET VOLUME 9.4 fl (7.4-10.4); MONO # 0.7 (0.1-0.6); MONO % 10.5 % (1.7-9.3); PLATELET COUNT 266 K/mm3 (130-400); RED BLOOD COUNT 4.78 M/mm3 (4.20-5.60); REDCELL DISTRIBUTION WIDTH-CV 14.3 % (11.5-14.5)
[2020-01-15 15:15] LABS: BILIRUBIN,TOTAL 0.8 mg/dL (0.0-1.0); C-REACTIVE PROTEIN 0.6 mg/dL (0.0-0.9); CALCIUM 8.9 mg/dL (8.4-10.2); CREATININE, serum 0.95 (0.66-1.25); POTASSIUM 3.7 mmol/L (3.4-5.0); TOTAL PROTEIN 7.4 gm/dL (6.4-8.2)
[2020-01-15 15:37] LABS: ERYTHROCYTE SEDIMENTATION RATE 7 mm/hr (0-30)
== END ==
LOC: COL.LAB 14:20
PROVIDERS: Nurse Practitioner
DX: I10 Essential (primary) hypertension (principal); M00.9 Pyogenic arthritis, unspecified; Z22.322 Carrier or suspected carrier of Methicillin resistant Staphylococcus aureus

== ENCOUNTER → 2020-03-30 | Outpatient (CLI) | payer BC | LOC: COL.RAD 11:22 | DX: K43.9 Ventral hernia without obstruction or gangrene (principal); Z90.49 Acquired absence of other specified parts of digestive tract | CPT/HCPCS: Q9967 ==

== ENCOUNTER 2020-07-08 13:06 | Outpatient (RCR) | payer BC ==
[~2020-07-08 13:06] MED LIST changes: -FOLIC ACID800 MCG PO; -PRINIVIL20 MG PO; -PROFE180 MG PO; -VITAMINC1000TA PO
== END 2020-07-09 09:58 | disposition home or self-care (01) ==
LOC: WSC 13:06
DX: Z01.812 Encounter for preprocedural laboratory examination (principal); M17.12 Unilateral primary osteoarthritis, left knee

== ENCOUNTER → 2020-07-08 | Outpatient (CLI) | payer BC ==
[~2020-07-08] MED LIST changes: +FOLIC ACID800 MCG PO; +PRINIVIL20 MG PO; +PROFE180 MG PO; +VITAMINC1000TA PO
[2020-07-08 15:32] LABS: HEMATOCRIT 43.1 % (42.0-52.0); HEMOGLOBIN 14.5 g/dl (13.5-18.0); MEAN CELL VOLUME 82 fl (80.0-100.0); MEAN CORPUSCULAR HEMOGLOBIN 28 pg (27.0-31.0); MEAN CORPUSCULAR HGB CONC 34 g/dl (33.0-37.0); MEAN PLATELET VOLUME 9.5 fl (7.4-10.4); PLATELET COUNT 305 K/mm3 (130-400); RED BLOOD COUNT 5.26 M/mm3 (4.20-5.60); REDCELL DISTRIBUTION WIDTH-CV 13.5 % (11.5-14.5)
[2020-07-08 15:41] LABS: BILIRUBIN,TOTAL 0.8 mg/dL (0.0-1.0); C-REACTIVE PROTEIN 3.4 mg/dL (0.0-0.9); CALCIUM 9.2 mg/dL (8.4-10.2); CREATININE, serum 0.97 (0.66-1.25); POTASSIUM 4.3 mmol/L (3.4-5.0); TOTAL PROTEIN 7.1 gm/dL (6.4-8.2)
[2020-07-08 15:56] LABS: ERYTHROCYTE SEDIMENTATION RATE 18 mm/hr (0-30)
== END ==
LOC: COL.LAB 14:52
PROVIDERS: Internal Medicine Infectious Disease
DX: B99.9 Unspecified infectious disease (principal)

== ENCOUNTER 2020-07-10 09:02 | Inpatient (IN) | payer BC ==
[~2020-07-10] VITALS: Ht 188 cm; Wt 106.1 kg
[~2020-07-10 09:02] MED LIST changes: -FOLIC ACID800 MCG PO; -PRINIVIL20 MG PO; -PROFE180 MG PO; -VITAMINC1000TA PO
[2020-07-10 09:58] LABS: BASO % 0.2 % (0.0-2.0); EOS % 0.1 % (0-4.0); GRAN # 10.3 (1.4-6.5); GRAN % 79.7 % (42.2-75.2); HEMATOCRIT 48.4 % (42.0-52.0); LYMPH # 1.1 (1.2-3.4); LYMPH % 8.2 % (20.0-51.0); MEAN CELL VOLUME 82 fl (80.0-100.0); MEAN CORPUSCULAR HEMOGLOBIN 27 pg (27.0-31.0); MEAN CORPUSCULAR HGB CONC 33 g/dl (33.0-37.0); MEAN PLATELET VOLUME 9.7 fl (7.4-10.4); MONO # 1.5 (0.1-0.6); MONO % 11.6 % (1.7-9.3); PLATELET COUNT 400 K/mm3 (130-400); RED BLOOD COUNT 5.88 M/mm3 (4.20-5.60); REDCELL DISTRIBUTION WIDTH-CV 13.8 % (11.5-14.5)
[2020-07-10 10:04] LABS: ALBUMIN 4.7 gm/dL (3.5-5.0); BILIRUBIN,TOTAL 1.2 mg/dL (0.0-1.0); CALCIUM 9.8 mg/dL (8.4-10.2); POTASSIUM 4.3 mmol/L (3.4-5.0); TOTAL PROTEIN 8.3 gm/dL (6.4-8.2)
[2020-07-10] MEDS ORDERED: PRINIVIL20 MG PO (10:55)
[2020-07-10] MEDS ORDERED: PROFE180 MG PO ×2 (10:57→12:49)
[2020-07-10] MEDS ORDERED: FOLIC ACID800 MCG PO ×2 (10:58→12:48)
[2020-07-10] MEDS ORDERED: VITAMINC1000TA PO (10:58)
[2020-07-10 12:00] VITALS: BP 131/79; PULSE 102; TEMP 98.5
--- NOTE | 2020-07-10 12:45 | NUR ---
Patient to room via wheelchair from ER. Transfers self from wheelchair to bed. Oriented to room. Rates pain in abd 10/14. Denies nausea or vomiting at this time.
[2020-07-10 13:11] VITALS: BP 131/79; PULSE 102; TEMP 98.7
--- NOTE | 2020-07-10 13:32 | NUR ---
Message left at Dr. Prado's office to contact this nurse to see if they had completed any MRS tests on patient. Patient says that they did the other day and told him that he was negative for MRSA.
--- NOTE | 2020-07-10 13:44 | NUR ---
Received call from Dr. Prado's office. They did not do any MRSA test the other day when the patient was in office. Patient was informed of this and that we would have to continue the isolation precautions. Patient verbalizes understanding.
--- NOTE | 2020-07-10 14:26 | NUR ---
Patient up to shower and now back to bed. IV fluids connected as prescribed. Patient still feeling okay at this time. Did have a bowel movement. Denies additional needs.
[2020-07-10 16:11] VITALS: BP 132/68; PULSE 90; TEMP 97.9
--- NOTE | 2020-07-10 16:30 | NUR ---
Lying in bed watching TV. Denies pain. Has had a couple more loose bowel movements. Denies needs at this time.
--- NOTE | 2020-07-10 18:00 | NUR ---
Lying in bed on left side watching TV. No pain. Denies needs at this time.
[2020-07-10 19:08] VITALS: BP 112/74; PULSE 79; TEMP 97.9
--- NOTE | 2020-07-10 20:30 | NUR ---
Initial shift assessment done- denies any pain at this time, is NPO, denies nausea- states has had liquid/loose stool 2-3 times today. Up in room as tolerated, steady gait.
[2020-07-10 23:25] VITALS: BP 123/68; PULSE 77; TEMP 98.2
[2020-07-11 03:30] VITALS: BP 111/54; PULSE 87; TEMP 98.4
--- NOTE | 2020-07-11 05:15 | NUR ---
Has slept fairly well during the night-- No pain, VSS, IV fluids at 100cc/hr
[2020-07-11 06:52] LABS: HEMATOCRIT 39.7 % (42.0-52.0); MEAN CELL VOLUME 84 fl (80.0-100.0); MEAN CORPUSCULAR HGB CONC 33 g/dl (33.0-37.0); MEAN PLATELET VOLUME 9.7 fl (7.4-10.4); RED BLOOD COUNT 4.72 M/mm3 (4.20-5.60); REDCELL DISTRIBUTION WIDTH-CV 13.5 % (11.5-14.5)
[2020-07-11 06:59] LABS: CALCIUM 8.7 mg/dL (8.4-10.2); CREATININE, serum 0.9 (0.66-1.25); MEAN CORPUSCULAR HEMOGLOBIN 28 pg (27.0-31.0); PLATELET COUNT 256 K/mm3 (130-400)
[2020-07-11 08:54] VITALS: BP 161/77; PULSE 82; TEMP 98.1
--- NOTE | 2020-07-11 10:12 | NUR ---
Assessment completed, alert/oriented, vital signs stable, pain controlled and minimal, tolerating some PO intake of CL diet, IVF stopped, abd soft and BS+, lungs CTA/ no respd.ifficulty, heart RRR, denies needs, hoping to be dsicharge home today
== END 2020-07-11 11:47 | disposition home or self-care (01) | DRG 395 ==
LOC: COL.ER 09:02 → SURG 10:44
PROVIDERS: Emergency Medicine; ADMIT Surgery
DX: K43.0 Incisional hernia with obstruction, without gangrene (principal); Z93.2 Ileostomy status
CPT/HCPCS: J1170; J2405; J7030; J7120

== ENCOUNTER → 2020-07-10 | Outpatient (CLI) | payer BC ==
[~2020-07-10] MED LIST changes: +FOLIC ACID800 MCG PO; +PRINIVIL20 MG PO; +PROFE180 MG PO; +VITAMINC1000TA PO
== END ==
LOC: COL.LAB 08:00 → JCC 07-16 13:00 → EDSTATUS 07-16 13:00
DX: Z01.812 Encounter for preprocedural laboratory examination (principal); Z20.828 Contact with and (suspected) exposure to other viral communicable diseases